=== PATIENT | female | born 1960 | race Caucasian/White ===

== ENCOUNTER 2023-09-01 09:43 | Outpatient (CLI) | payer OTHER | END 2023-09-01 09:44 | disposition home or self-care (01) | LOC: BICMAMMO 09:43 | PROVIDERS: ATTEND Physician Assistant | DX: Z12.31 Encounter for screening mammogram for malignant neoplasm of breast (principal); Z80.3 Family history of malignant neoplasm of breast; N63.22 Unspecified lump in the left breast, upper inner quadrant | CPT/HCPCS: 77063; 77067 ==

== ENCOUNTER 2023-09-09 09:57 | Outpatient (CLI) | payer OTHER | END 2023-09-09 09:58 | disposition home or self-care (01) | LOC: BICMAMMO 09:57 | PROVIDERS: ATTEND Physician Assistant | DX: N64.89 Other specified disorders of breast (principal) | CPT/HCPCS: G0279 ==